=== PATIENT | female | born 1960 ===

== ENCOUNTER 2018-05-16 08:36 | Inpatient (IN) | payer MEDICAID ==
[2018-05-16 08:47] VITALS: BMI 37.3
[2018-05-16] MEDS ORDERED: Sodium Chloride 0.9% 1,000 ML IV ONE (09:09)
[2018-05-16] MEDS ORDERED: Sodium Chloride 0.9% 1,000 ML ONE (09:28)
[2018-05-16 09:54] LABS: BASO # 0.1 K/uL (0.0-0.2); BASO % 0.5 % (0.0-2.0); HEMOGLOBIN 14.2 g/dL (11.0-16.0); LYMPH # 1.5 K/uL (1.0-4.3); LYMPH % 9.9 % (20.0-40.0); MEAN CORPUSCULAR HEMOGLOBIN 27.6 pg (27.0-31.0); MEAN CORPUSCULAR HGB CONC 33.2 g/dL (33.0-37.0); MEAN PLATELET VOLUME 9.3 fL (7.2-11.7); MONO # 0.9 K/uL (0.0-0.8); MONO % 6.1 % (0.0-10.0); NEUT # 12.2 K/uL (1.8-7.0); NEUT % 83.5 % (50.0-75.0); NRBC % 0.3 % (0.0-2.0); PLATELET COUNT 283 K/uL (130-400); RBC 5.16 Mil/uL (3.80-5.20); RED CELL DISTRIBUTION WIDTH 14.1 % (11.5-14.5); SQUAMOUS EPITHIAL 1 /hpf (0-5); URINE BILIRUBIN NEGATIVE (NEGATIVE); URINE BLOOD NEGATIVE (NEGATIVE); URINE CLARITY Hazy (Clear); URINE COLOR Yellow (YELLOW); URINE GLUCOSE (UA) NORMAL (Normal); URINE LEUKOCYTE ESTERASE NEG Leu/uL (Negative); URINE PROTEIN NEGATIVE (NEGATIVE); URINE UROBILINOGEN NORMAL mg/dL (0.2-1.0); WHITE BLOOD COUNT 14.7 K/uL (4.8-10.8)
[2018-05-16 10:11] LABS: ALB/GLOB RATIO 1.4 (1.0-2.1); ALBUMIN 4.4 g/dL (3.5-5.0); ALT/SGPT 31 U/L (9-52); AST/SGOT 29 U/L (14-36); BLOOD UREA NITROGEN 15 mg/dL (7-17); CALCIUM 9.2 mg/dl (8.6-10.4); GFR AFRICAN-AMERICAN > 60; GFR NON-AFRICAN AMERICAN > 60; LIPASE 114 U/L (23-300)
[2018-05-16 10:28] LABS: LYMPHOCYTE 11 % (20-40); MONOCYTE 7 % (0-10); NEUTROPHIL 82 % (50-75); PLATELET ESTIMATE NORMAL (NORMAL); TOTAL CELLS COUNTED 100
--- NOTE | 2018-05-16 10:55 | US ---
HISTORY: Right upper quadrant tenderness COMPARISON: None. TECHNIQUE: Grayscale imaging was performed. FINDINGS: LIVER: Measures 16.7 cm in length. There is diffuse increased echogenicity of the liver parenchyma. No mass. No intrahepatic bile duct dilatation. GALLBLADDER: There is a 2.0 cm stone in the neck of the gallbladder. There is mild gallbladder wall thickening and pericholecystic fluid. The sonographic Allen sign is positive. COMMON BILE DUCT: Measures 4.2 mm. No stones. No dilatation. PANCREAS: Normal in size and echotexture. No mass. No ductal dilatation. RIGHT KIDNEY: Measures 11.0 cm in length. Normal echogenicity. No calculus, mass, or hydronephrosis. AORTA: No aneurysmal dilatation. IVC: Unremarkable. OTHER FINDINGS: None . IMPRESSION: 1. Mild hepatomegaly. Diffuse increased echogenicity in the liver may reflect hepatic steatosis however parenchymal infectious/ inflammatory etiologies cannot be entirely excluded. Clinical and laboratory correlation is advised. 2. 2.0 cm presumable impacted stone in the neck of the gallbladder with mild gallbladder wall thickening and pericholecystic fluid as well as positive sonographic Allen's sign. Findings may represent acute calculus cholecystitis in the appropriate clinical setting. Clinical follow-up is advised.
--- NOTE | 2018-05-16 11:05 | C.PDOC ---
History Of Present Illness 58 y/o female presents to ED with c/o abdominal pain for 2 days associated with nausea and vomiting. Patient denies fever, chills, diarrhea, chest pain, sob or any other complaints at this time. Time Seen by Provider: 05/16/18 08:50 Chief Complaint (Nursing): Abdominal Pain History Per: Patient History/Exam Limitations: no limitations Onset/Duration Of Symptoms: Days Current Symptoms Are (Timing): Still Present Location Of Pain/Discomfort: RUQ Past Medical History Reviewed: Historical Data, Nursing Documentation, Vital Signs Vital Signs: Last Vital Signs Temp 98.7 F 05/16/18 08:46 Pulse 63 05/16/18 08:46 Resp 18 05/16/18 08:46 BP 136/67 05/16/18 08:46 Pulse Ox 100 05/16/18 12:09 - Medical History PMH: No Chronic Diseases Surgical History: No Surg Hx Family History: States: No Known Family Hx - Social History Hx Alcohol Use: No Hx Substance Use: No - Immunization History Hx Tetanus Toxoid Vaccination: No Hx Influenza Vaccination: No Hx Pneumococcal Vaccination: No Review Of Systems Except As Marked, All Systems Reviewed And Found Negative. Gastrointestinal: Positive for: Nausea, Vomiting, Abdominal Pain Physical Exam - Physical Exam Appears: Non-toxic, No Acute Distress Skin: Warm, Dry, No Rash Head: Atraumatic, Normacephalic Oral Mucosa: Moist Neck: Normal ROM, Supple Cardiovascular: Rhythm Regular Respiratory: Normal Breath Sounds, No Rales, No Rhonchi, No Wheezing Gastrointestinal/Abdominal: Bowel Sounds, Soft, Tenderness (RUQ), No Guarding, No Rebound Back: No CVA Tenderness, No Paraspinal Tenderness Neurological/Psych: Oriented x3, Normal Speech ED Course And Treatment - Laboratory Results Result Diagrams: 05/16/18 09:40 05/16/18 09:40 ECG: Interpreted By Me, Viewed By Me ECG Rhythm: Sinus Rhythm Rate From EC (bpm) O2 Sat by Pulse Oximetry: 100 (ra) Pulse Ox Interpretation: Normal Medical Decision Making Medical Decision Making: Assessment: RUQ pain Progress: D/w medical or surgical instrument maker, Dr Rucker consult. Patient to admitted to hospital for acute Cholecystitis Disposition Discussed With : Dwain Aguilar Doctor Will See Patient In The: Hospital Counseled Patient/Family Regarding: Studies Performed, Diagnosis - Disposition Disposition Time: 12:09 Condition: FAIR - Clinical Impression Clinical Impression: Cholecystitis - Scribe Statement The provider has reviewed the documentation as recorded by the Merlineibe Deuce Virk All medical record entries made by the Lennie were at my direction and personally dictated by me. I have reviewed the chart and agree that the record accurately reflects my personal performance of the history, physical exam, medical decision making, and the department course for this patient. I have also personally directed, reviewed, and agree with the discharge instructions and disposition.
[2018-05-16] MEDS ORDERED: Ciprofloxacin 400mg/200ml D5W 400 MG/200 ML BAG IVPB STA (11:37)
[2018-05-16] MEDS ORDERED: metroNIDAZOLE IV 500 mg/100 ml 500 MG/100 ML BAG IVPB STA (11:39)
--- NOTE | 2018-05-16 12:10 | RAD ---
Chest x-ray single frontal view History: Abdominal pain. Comparison: None available. Findings: Moderate venous congestion. Patchy consolidative changes in the right infrahilar region and left lung base. Cardiomegaly. Degenerative changes in the spine. Impression: Moderate venous congestion. Patchy consolidative changes in the right infrahilar region and left lung base. Cardiomegaly.
[2018-05-16] MEDS ORDERED: Ciprofloxacin 400mg/200ml D5W 400 MG/200 ML BAG IVPB ONE (12:28)
[2018-05-16] MEDS ORDERED: metroNIDAZOLE IV 500 mg/100 ml 500 MG/100 ML BAG ONE (12:29)
[2018-05-16] MEDS ORDERED: Sodium Chloride 0.9% 1,000 ML IV SCH (13:15)
--- NOTE | 2018-05-16 13:21 | CP.PCM.HP ---
<GuillermoKarly L. - Last Filed: 05/16/18 13:31> History of Present Illness - History of Present Illness History of Present Illness: CC: RUQ pain Patient is a 58 year old Female with no PMHx presenting with new onset RUQ pain radiating to the back. Pain started approximately 2 weeks ago as a dull pain and worsened around 9PM last night, 05/15/18, after eating a ham sandwich. At the same time patient experienced the onset of nausea and vomiting which continued several times last night and 4 more times today. Patient denies any blood in her vomitus. She currently denies any fever, chills , diarrhea, constipation, or change in urinary frequency. She still has an appetite, but was unable to eat today due to nausea. At the time of admission she endorsed RUQ pain and tenderness and back pain that seemed to get better with the Torodol given to her in the ER. Patient has never been to [facility], and does not have a PMD. PMHx: None PSH: 2 c-sections 1979, 1981 FH: Mom- HTN Daughter HTN Social: Former smoker until 1 year ago. Smoked 3-4 cigarettes/day x 30 years No Home Meds Present on Admission - Present on Admission Any Indicators Present on Admission: No History of DVT/PE: No History of Uncontrolled Diabetes: No Urinary Catheter: No Decubitus Ulcer Present: No Review of Systems - Constitutional Constitutional: absent: Chills, Fever, Weight Loss - EENT Eyes: absent: Blurred Vision Nose/Mouth/Throat: absent: Sore Throat - Cardiovascular Cardiovascular: absent: Chest Pain, Diaphoresis, Palpitations, Pedal Edema - Respiratory Respiratory: absent: Cough, Dyspnea, Dyspnea on Exertion, Wheezing - Gastrointestinal Gastrointestinal: Abdominal Pain (RUQ pain ), Nausea, Vomiting. absent: Constipation, Diarrhea - Genitourinary Genitourinary: absent: Difficulty Urinating, Dysuria, Hematuria - Musculoskeletal Musculoskeletal: absent: Numbness, Stiffness, Tingling - Integumentary Integumentary: absent: Rash - Neurological Neurological: absent: Weakness - Hematologic/Lymphatic Hematologic: absent: Easy Bleeding, Easy Bruising Past Patient History - Past Social History Smoking Status: Never Smoked - PSYCHIATRIC Hx Substance Use: No - SURGICAL HISTORY Hx Surgeries: Yes Hx Section: Yes (X2) - ANESTHESIA Hx Anesthesia: Yes Hx Anesthesia Reactions: No Meds Allergies/Adverse Reactions: Allergies Allergy/AdvReac Type Severity Reaction Status Date / Time Penicillins Allergy Unknown Verified 05/16/18 08:45 Physical Exam - Constitutional Appears: Non-toxic, No Acute Distress - Head Exam Head Exam: ATRAUMATIC, NORMAL INSPECTION, NORMOCEPHALIC - Eye Exam Eye Exam: EOMI, Normal appearance - ENT Exam ENT Exam: Mucous Membranes Dry - Neck Exam Neck exam: Positive for: Full Rom - Respiratory Exam Respiratory Exam: Clear to Auscultation Bilateral, NORMAL BREATHING PATTERN. absent: Rales, Rhonchi, Wheezes, Respiratory Distress, Stridor - Cardiovascular Exam Cardiovascular Exam: REGULAR RHYTHM, RRR, +S1, +S2 - GI/Abdominal Exam GI & Abdominal Exam: Normal Bowel Sounds, Soft, Tenderness (RUQ pain, positive Allen's sign ). absent: Distended, Firm, Guarding - Extremities Exam Extremities exam: Positive for: normal inspection. Negative for: pedal edema, tenderness - Neurological Exam Neurological exam: Alert, CN II-XII Intact, Oriented x3 - Psychiatric Exam Psychiatric exam: Normal Affect, Normal Mood - Skin Skin Exam: Intact, Normal Color, Warm Results - Vital Signs Recent Vital Signs: Last Vital Signs Temp 98.7 F 05/16/18 08:46 Pulse 63 05/16/18 08:46 Resp 18 05/16/18 08:46 BP 136/67 05/16/18 08:46 Pulse Ox 100 05/16/18 12:28 - Labs Result Diagrams: 05/16/18 09:40 05/16/18 09:40 Labs: Laboratory Results - last 24 hr 05/16/18 05/16/18 05/16/18 09:40 09:40 09:40 WBC 14.7 H RBC 5.16 Hgb 14.2 Hct 42.8 MCV 83.0 MCH 27.6 MCHC 33.2 RDW 14.1 Plt Count 283 MPV 9.3 Neut % (Auto) 83.5 H Lymph % (Auto) 9.9 L [place] % (Auto) 6.1 Eos % (Auto) 0.0 Baso % (Auto) 0.5 Neut # (Auto) 12.2 H Lymph # (Auto) 1.5 [place] # (Auto) 0.9 H Eos # (Auto) 0.0 Baso # (Auto) 0.1 Neutrophils % (Manual) 82 H Lymphocytes % (Manual) 11 L Monocytes % (Manual) 7 Platelet Estimate Normal RBC Morphology Normal Sodium 142 Potassium 3.8 Chloride 104 Carbon Dioxide 24 Anion Gap 17 BUN 15 Creatinine 0.6 L Est GFR ( Amer) > 60 Est GFR (Non-Af Amer) > 60 Random Glucose 127 H Calcium 9.2 Total Bilirubin 0.6 AST 29 ALT 31 Alkaline Phosphatase 93 Troponin I < 0.0120 Total Protein 7.6 Albumin 4.4 Globulin 3.2 Albumin/Globulin Ratio 1.4 Lipase 114 Urine Color Yellow Urine Clarity Hazy Urine pH 6.0 Ur Specific [place] 1.026 Urine Protein Negative Urine Glucose (UA) Normal Urine Ketones Negative Urine Blood Negative Urine Nitrate Negative Urine Bilirubin Negative Urine Urobilinogen Normal Ur Leukocyte Esterase Neg Urine WBC (Auto) 1 Urine RBC (Auto) 4 H Ur Squamous Epith Cells 1 Assessment & Plan - Assessment and Plan (Free Text) Assessment: Cholecystitis Abdominal ultrasound: mild hepatomegaly. 2cm stone in neck of gallbladder, positive sonographic Allen's sign f/u abd/pelvis CT without contrast Surgery consulted, Dr. Rucker, help appreciated NPO Meds: Toradol 30mg ivp q6h prn pain Cipro 400mg ivpb q12h Metronidazole 500mg ivbp q8h Leukocytosis 2/2 cholecystitis WBC: 14.7 Cipro 400mg ivpb q12h Metronidazole 500mg ivbp q8h Prophylaxis Pepcid 20mg daily SCDs <Dwain Aguilar H - Last Filed: 05/16/18 16:46> Results - Vital Signs Recent Vital Signs: Last Vital Signs Temp 98.3 F 05/16/18 16:03 Pulse 62 05/16/18 16:03 Resp 18 05/16/18 16:03 BP 96/54 L 05/16/18 16:03 Pulse Ox 97 05/16/18 16:03 - Labs Result Diagrams: 05/16/18 09:40 05/16/18 09:40 Labs: Laboratory Results - last 24 hr 05/16/18 05/16/18 05/16/18 09:40 09:40 09:40 WBC 14.7 H RBC 5.16 Hgb 14.2 Hct 42.8 MCV 83.0 MCH 27.6 MCHC 33.2 RDW 14.1 Plt Count 283 MPV 9.3 Neut % (Auto) 83.5 H Lymph % (Auto) 9.9 L [place] % (Auto) 6.1 Eos % (Auto) 0.0 Baso % (Auto) 0.5 Neut # (Auto) 12.2 H Lymph # (Auto) 1.5 [place] # (Auto) 0.9 H Eos # (Auto) 0.0 Baso # (Auto) 0.1 Neutrophils % (Manual) 82 H Lymphocytes % (Manual) 11 L Monocytes % (Manual) 7 Platelet Estimate Normal RBC Morphology Normal PT INR APTT Sodium 142 Potassium 3.8 Chloride 104 Carbon Dioxide 24 Anion Gap 17 BUN 15 Creatinine 0.6 L Est GFR ( Amer) > 60 Est GFR (Non-Af Amer) > 60 Random Glucose 127 H Calcium 9.2 Phosphorus Magnesium Total Bilirubin 0.6 AST 29 ALT 31 Alkaline Phosphatase 93 Troponin I < 0.0120 Total Protein 7.6 Albumin 4.4 Globulin 3.2 Albumin/Globulin Ratio 1.4 Lipase 114 TSH 3rd Generation Urine Color Yellow Urine Clarity Hazy Urine pH 6.0 Ur Specific [place] 1.026 Urine Protein Negative Urine Glucose (UA) Normal Urine Ketones Negative Urine Blood Negative Urine Nitrate Negative Urine Bilirubin Negative Urine Urobilinogen Normal Ur Leukocyte Esterase Neg Urine WBC (Auto) 1 Urine RBC (Auto) 4 H Ur Squamous Epith Cells 1 05/16/18 05/16/18 14:04 14:04 WBC RBC Hgb Hct MCV MCH MCHC RDW Plt Count MPV Neut % (Auto) Lymph % (Auto) [place] % (Auto) Eos % (Auto) Baso % (Auto) Neut # (Auto) Lymph # (Auto) [place] # (Auto) Eos # (Auto) Baso # (Auto) Neutrophils % (Manual) Lymphocytes % (Manual) Monocytes % (Manual) Platelet Estimate RBC Morphology PT 12.5 H INR 1.1 APTT 35 H Sodium Potassium Chloride Carbon Dioxide Anion Gap BUN Creatinine Est GFR ( Amer) Est GFR (Non-Af Amer) Random Glucose Calcium Phosphorus 3.3 Magnesium 1.8 Total Bilirubin AST ALT Alkaline Phosphatase Troponin I Total Protein Albumin Globulin Albumin/Globulin Ratio Lipase TSH 3rd Generation 0.95 Urine Color Urine Clarity Urine pH Ur Specific [place] Urine Protein Urine Glucose (UA) Urine Ketones Urine Blood Urine Nitrate Urine Bilirubin Urine Urobilinogen Ur Leukocyte Esterase Urine WBC (Auto) Urine RBC (Auto) Ur Squamous Epith Cells Attending/Attestation - Attestation I have personally seen and examined this patient.: Yes I have fully participated in the care of the patient.: Yes I have reviewed all pertinent clinical information: Yes Notes (Text): 05/16/18 16:46 Medical attending: Patient was seen and examined by me, agrees the above note by the medical cash poster. The patient was having right upper quadrant pain. Ultrasound shows that there is what appears to be a sonographic Allen sign as well as a 2 cm stone near the neck of the gallbladder. Recheck in additional CT of the abdomen and pelvis as well without contrast. For now we'll give Toradol for pain control. She does have a white blood cell count so we will be starting the Cipro and Flagyl for the time being. Thank you very much, Dwain Aguilar
--- NOTE | 2018-05-16 13:55 | CT ---
PROCEDURE: CT Abdomen and Pelvis without intravenous contrast HISTORY: cholecystitis, RUQ pain COMPARISON: None. TECHNIQUE: Without contrast.. Contrast dose: 0 Radiation dose: Total exam DLP = 798.68 mGy-cm. This CT exam was performed using one or more of the following dose reduction techniques: Automated exposure control, adjustment of the mA and/or kV according to patient size, and/or use of iterative reconstruction technique. FINDINGS: LOWER THORAX: Unremarkable. LIVER: Unremarkable. No gross lesion or ductal dilatation. GALLBLADDER AND BILE DUCTS: Cholelithiasis. Peripherally calcified gallstone noted. No mural thickening or pericholecystic fluid appreciated. No evidence of biliary obstruction. Normal caliber of common bile duct. PANCREAS: Unremarkable. No gross lesion or ductal dilatation. SPLEEN: Unremarkable. ADRENALS: Unremarkable. No mass. KIDNEYS AND URETERS: Unremarkable. No hydronephrosis. No solid mass. VASCULATURE: Unremarkable. No aortic aneurysm. BOWEL: Unremarkable. No obstruction. No gross mural thickening. APPENDIX: Unremarkable. Normal appendix. PERITONEUM: Unremarkable. No free fluid. No free air. LYMPH NODES: Unremarkable. No enlarged lymph nodes. BLADDER: Nondistended REPRODUCTIVE: Small calcified uterine fibroid at fundus. Intrauterine device noted. Consideration should be given to removal of the intrauterine device in this postmenopausal patient. BONES: No acute fracture. OTHER FINDINGS: None. IMPRESSION: Cholelithiasis without evidence of cholecystitis. If there is clinical concern of cholecystitis recommend evaluation with ultrasound examination. No biliary obstruction. Incidentally noted intrauterine device within the uterus. In this postmenopausal patient, consideration should be given to nonemergent removal of intrauterine device. Small calcified uterine fibroid. No other significant abnormality.
[2018-05-16 14:17] LABS: INR 1.1; PROTHROMBIN TIME 12.5 SECONDS (9.7-12.2)
--- NOTE | 2018-05-17 04:30 | CP.PCM.CON ---
History of Present Illness - History of Present Illness History of Present Illness: Surgery 58 F w ho cholelithiasis came with RUQ pain started yesterday. Pain started yesterday. It radiates to her R back. Pt also reports N/V. Non bloody non bilious. Denies fever, diarrhea, CP, SOB, hematochezia, hematemesis, dysuria, hematuria, sick contact, recent travels. Pt had these sx multiple times . It is getting more frequent and intense. US shows 2cm gallstones on the neck of the gallbladder. thicken wall and pericholecystic fluids. CBD is 4mm. LFT is wnl. WBC is 15. Surgery is consulted to evaluate for cholecystitis . PT is consented to undergo lap sirena. PMHx: cholelithiasis PSH: 2 c-sections 1979, 1981 FH: Mom- HTN Daughter HTN Social: Former smoker until 1 year ago. Smoked 3-4 cigarettes/day x 30 years Review of Systems - Review of Systems Review of Systems: See HPI Past Patient History - Past Medical History & Family History Past Medical History?: Yes - Past Social History Smoking Status: Former Smoker - CARDIAC Hx Cardiac Disorders: No - PULMONARY Hx Respiratory Disorders: No - NEUROLOGICAL Hx Neurological Disorder: No - HEENT Hx HEENT Problems: No - RENAL Hx Chronic Kidney Disease: No - ENDOCRINE/METABOLIC Hx Endocrine Disorders: No - HEMATOLOGICAL/ONCOLOGICAL Hx Blood Disorders: No - INTEGUMENTARY Hx Dermatological Problems: No - MUSCULOSKELETAL/RHEUMATOLOGICAL Hx Falls: No - GASTROINTESTINAL Hx Gastrointestinal Disorders: No - GENITOURINARY/GYNECOLOGICAL Hx Genitourinary Disorders: No - PSYCHIATRIC Hx Psychophysiologic Disorder: No Hx Substance Use: No - SURGICAL HISTORY Hx Surgeries: Yes Hx Section: Yes (X2) - ANESTHESIA Hx Anesthesia: Yes Hx Anesthesia Reactions: No Hx Malignant Hyperthermia: No Has any member of the family had a problem w/ anesthesia?: No Meds Allergies/Adverse Reactions: Allergies Allergy/AdvReac Type Severity Reaction Status Date / Time Penicillins Allergy Unknown Verified 05/16/18 08:45 - Medications Medications: Current Medications Famotidine (Pepcid) 20 mg IVP DAILY NABIL Sodium Chloride (Sodium Chloride 0.9%) 1,000 mls @ 100 mls/hr IV .Q10H NABIL Last Admin: 05/16/18 15:46 Dose: 100 mls/hr Ciprofloxacin (Cipro 400mg/200ml Dsw) 400 mg in 200 mls @ 133 mls/hr IVPB Q12H NABIL PRN Reason: Protocol Metronidazole (Flagyl) 500 mg in 100 mls @ 100 mls/hr IVPB Q8 NABIL PRN Reason: Protocol Ketorolac Tromethamine (Toradol) 30 mg IVP Q6 PRN PRN Reason: Pain, moderate (4-7) Last Admin: 05/16/18 21:22 Dose: 30 mg Physical Exam - Constitutional Appears: No Acute Distress - Head Exam Head Exam: ATRAUMATIC, NORMAL INSPECTION, NORMOCEPHALIC - Eye Exam Eye Exam: EOMI, Normal appearance, PERRL Pupil Exam: NORMAL ACCOMODATION, PERRL - ENT Exam ENT Exam: Mucous Membranes Moist, Normal Exam - Neck Exam Neck exam: Positive for: Full Rom, Normal Inspection - Respiratory Exam Respiratory Exam: NORMAL BREATHING PATTERN - Cardiovascular Exam Cardiovascular Exam: REGULAR RHYTHM - GI/Abdominal Exam GI & Abdominal Exam: Normal Bowel Sounds, Soft, Tenderness. absent: Distended, Firm, Guarding, Hernia, Rebound, Rigid Additional comments: RUQ TTP, R back TTP. - Exam Exam: NORMAL INSPECTION - Extremities Exam Extremities exam: Positive for: full ROM, normal inspection - Back Exam Back exam: FULL ROM, NORMAL INSPECTION, tenderness - Neurological Exam Neurological exam: Alert, CN II-XII Intact, Normal Gait, Oriented x3, Reflexes Normal - Psychiatric Exam Psychiatric exam: Normal Affect, Normal Mood - Skin Skin Exam: Dry, Intact, Normal Color, Warm Results - Vital Signs Recent Vital Signs: Last Vital Signs Temp 98.3 F 05/16/18 23:41 Pulse 65 05/16/18 23:41 Resp 20 05/16/18 23:41 BP 92/52 L 05/16/18 23:41 Pulse Ox 95 05/16/18 23:41 - Labs Result Diagrams: 05/16/18 09:40 05/16/18 09:40 Labs: Laboratory Results - last 24 hr 05/16/18 05/16/18 05/16/18 09:40 09:40 09:40 WBC 14.7 H RBC 5.16 Hgb 14.2 Hct 42.8 MCV 83.0 MCH 27.6 MCHC 33.2 RDW 14.1 Plt Count 283 MPV 9.3 Neut % (Auto) 83.5 H Lymph % (Auto) 9.9 L [place] % (Auto) 6.1 Eos % (Auto) 0.0 Baso % (Auto) 0.5 Neut # (Auto) 12.2 H Lymph # (Auto) 1.5 [place] # (Auto) 0.9 H Eos # (Auto) 0.0 Baso # (Auto) 0.1 Neutrophils % (Manual) 82 H Lymphocytes % (Manual) 11 L Monocytes % (Manual) 7 Platelet Estimate Normal RBC Morphology Normal PT INR APTT Sodium 142 Potassium 3.8 Chloride 104 Carbon Dioxide 24 Anion Gap 17 BUN 15 Creatinine 0.6 L Est GFR ( Amer) > 60 Est GFR (Non-Af Amer) > 60 Random Glucose 127 H Calcium 9.2 Phosphorus Magnesium Total Bilirubin 0.6 AST 29 ALT 31 Alkaline Phosphatase 93 Troponin I < 0.0120 Total Protein 7.6 Albumin 4.4 Globulin 3.2 Albumin/Globulin Ratio 1.4 Lipase 114 TSH 3rd Generation Urine Color Yellow Urine Clarity Hazy Urine pH 6.0 Ur Specific [place] 1.026 Urine Protein Negative Urine Glucose (UA) Normal Urine Ketones Negative Urine Blood Negative Urine Nitrate Negative Urine Bilirubin Negative Urine Urobilinogen Normal Ur Leukocyte Esterase Neg Urine WBC (Auto) 1 Urine RBC (Auto) 4 H Ur Squamous Epith Cells 1 05/16/18 05/16/18 14:04 14:04 WBC RBC Hgb Hct MCV MCH MCHC RDW Plt Count MPV Neut % (Auto) Lymph % (Auto) [place] % (Auto) Eos % (Auto) Baso % (Auto) Neut # (Auto) Lymph # (Auto) [place] # (Auto) Eos # (Auto) Baso # (Auto) Neutrophils % (Manual) Lymphocytes % (Manual) Monocytes % (Manual) Platelet Estimate RBC Morphology PT 12.5 H INR 1.1 APTT 35 H Sodium Potassium Chloride Carbon Dioxide Anion Gap BUN Creatinine Est GFR ( Amer) Est GFR (Non-Af Amer) Random Glucose Calcium Phosphorus 3.3 Magnesium 1.8 Total Bilirubin AST ALT Alkaline Phosphatase Troponin I Total Protein Albumin Globulin Albumin/Globulin Ratio Lipase TSH 3rd Generation 0.95 Urine Color Urine Clarity Urine pH Ur Specific [place] Urine Protein Urine Glucose (UA) Urine Ketones Urine Blood Urine Nitrate Urine Bilirubin Urine Urobilinogen Ur Leukocyte Esterase Urine WBC (Auto) Urine RBC (Auto) Ur Squamous Epith Cells Assessment & Plan - Assessment and Plan (Free Text) Assessment: symptomatic cholelithiasis US shows 2cm gallstones on the neck of the gallbladder. thicken wall and pericholecystic fluids. CBD is 4mm. LFT is wnl. WBC is 15. Surgery is consulted to evaluate for cholecystitis . PT is consented to undergo lap sirena. -NPO -IVF -ABX -OR at 9AM lap sirena -Pain /nausea control -DT/GI ppx DW Dr. Rucker
[2018-05-17] MEDS ORDERED: HYDROmorphone 1 mg/ml ISec IVP PRN (04:41)
[2018-05-17] MEDS: metroNIDAZOLE IV 500 mg/100 ml 500 MG/100 ML BAG IVPB SCH ×3 (06:13→21:33)
[2018-05-17] MEDS: Ciprofloxacin 400mg/200ml D5W 400 MG/200 ML BAG IVPB SCH ×2 (06:13→18:04)
[2018-05-17] MEDS: Sodium Chloride 0.9% 1,000 ML IV SCH ×4 (07:09→18:18)
[2018-05-17 07:32] LABS: BASO % 0.4 % (0.0-2.0); EOS # 0.1 K/uL (0.0-0.7); LYMPH # 2.1 K/uL (1.0-4.3); LYMPH % 18.8 % (20.0-40.0); MEAN CELL VOLUME 83.6 fL (81.0-99.0); MEAN CORPUSCULAR HEMOGLOBIN 27.8 pg (27.0-31.0); MEAN CORPUSCULAR HGB CONC 33.3 g/dL (33.0-37.0); MEAN PLATELET VOLUME 9.1 fL (7.2-11.7); MONO # 1.2 K/uL (0.0-0.8); MONO % 10.6 % (0.0-10.0); NEUT # 7.7 K/uL (1.8-7.0); NEUT % 69.2 % (50.0-75.0); RBC 4.26 Mil/uL (3.80-5.20); RED CELL DISTRIBUTION WIDTH 13.9 % (11.5-14.5); WHITE BLOOD COUNT 11.2 K/uL (4.8-10.8)
[2018-05-17 07:37] LABS: HEMOGLOBIN 11.8 g/dL (11.0-16.0)
[2018-05-17 08:07] LABS: ALB/GLOB RATIO 1.3 (1.0-2.1); ALBUMIN 3.2 g/dL (3.5-5.0); ALT/SGPT 29 U/L (9-52); AST/SGOT 21 U/L (14-36); BLOOD UREA NITROGEN 11 mg/dL (7-17); CALCIUM 8.1 mg/dl (8.6-10.4); GFR AFRICAN-AMERICAN > 60; GFR NON-AFRICAN AMERICAN > 60; HDL CHOLESTEROL 28 mg/dL (30-70)
[2018-05-17 08:31] LABS: LDL CHOLESTEROL 95 mg/dL (0-129)
[2018-05-17] MEDS ORDERED: Bupivacaine-Epi 0.5%-1:200,000 PF Inj ONE (08:52)
[2018-05-17] MEDS ORDERED: Propofol 10 mg/ml Inj (20 ML) ONE ×2 (09:01→09:20)
[2018-05-17] MEDS ORDERED: Rocuronium 10 mg/ml (5 ml) ONE (09:01)
[2018-05-17] MEDS ORDERED: Midazolam 2 MG/2 ML VIAL ONE ×2 (09:01→09:21)
[2018-05-17] MEDS ORDERED: Neostigmine Methylsulfate 3mg/3ml Syringe IV ONE (10:24)
--- NOTE | 2018-05-17 10:40 | PCM.SURG1 ---
Surgeon's Initial Post Op Note - Surgeon's Notes Surgeon: Dr. Rucker Head Soft Sugar Operator: Dr. Rudolph PGY2 Type of Anesthesia: General Endo Pre-Operative Diagnosis: Acute Cholecystitis Operative Findings: See operative dictation Post-Operative Diagnosis: Acute Cholecystitis Operation Performed: Laparoscopic Cholecystectomy Specimen/Specimens Removed: Gallbladder Estimated Blood Loss: EBL {In ML}: 20 Blood Products Given: N/A Drains Used: No Drains Post-Op Condition: Good Date of Surgery/Procedure: 05/17/18 Time of Surgery/Procedure: 10:40
[2018-05-17] MEDS ORDERED: HYDROmorphone 0.5 mg/0.5 ml ISec IVP PRN (10:41)
--- NOTE | 2018-05-17 12:54 | CP.PCM.PCO ---
Physician Communication Note - Physician Communication Note Physician Communication Note: Patient transferred to Dr. Rucker's service.
[2018-05-17 13:03] VITALS: RESP 20
[2018-05-17] MEDS: Oxycodone/Acetaminophen 5/325 mg Tab PO PRN ×2 (18:04→21:37)
--- NOTE | 2018-05-17 21:38 | OP ---
PROCEDURE DATE: 05/17/2018 PREOPERATIVE DIAGNOSIS: Acute calculous cholecystitis. POSTOPERATIVE DIAGNOSIS: Acute calculous cholecystitis. PROCEDURE PERFORMED: Laparoscopic cholecystectomy. SURGEON: Nate Rucker MD FINDINGS: Gallbladder was markedly distended, very edematous, thickened mora with adhesions involving the inferior portion of the gallbladder down into the duodenum and stomach. DESCRIPTION OF PROCEDURE: Under general anesthesia, the patient was prepared and draped in the sterile fashion. CO2 was insufflated through a Veress needle inserted in the umbilical area to about 15 mmHg pressure. A 10-mm trocar was then inserted through which a laparoscope was inserted. Under direct vision, a 5-mm epigastric port and a 5-mm right upper quadrant ports were inserted. The patient was placed in the reverse Trendelenburg position and turned slightly towards the left side. It was impossible to grasp the gallbladder because of the very dense texture of it. Therefore, a needle was then inserted, and about 20 mL of bile was then aspirated. It likely collapsed the gallbladder but allowed us to be able to grab it with the forceps. Some fluid was filled into the peritoneal cavity. The fluid was immediately suctioned out. The adhesions were taken down. The grasper was then reapplied around the area of the ampulla. Traction was applied. There was a large stone impacted in this area. The adhesions were taken down. Blunt and sharp dissection was carried out to isolate the cystic duct and then cystic arteries, which were transacted between hemoclips. The gallbladder was then removed from the liver bed with electrocautery. All the bleeders were controlled with electrocautery. The gallbladder was extracted through the umbilical port. It was necessary to enlarge the fascial and peritoneal incision to accommodate the passage of this large stone. The area was irrigated with copious amount of saline solution. The irrigating fluid suctioned out. CO2 was allowed to escape from the peritoneal cavity. Trocars were removed. The wound was closed in a routine fashion. Estimated blood loss about 20 mL. No complications. Nate Rucker MD
[2018-05-18] MEDS: Sodium Chloride 0.9% 1,000 ML IV SCH ×2 (01:00→07:30)
[2018-05-18] MEDS: Oxycodone/Acetaminophen 5/325 mg Tab PO PRN (04:23)
[2018-05-18 04:30] VITALS: O2SAT 96
[2018-05-18] MEDS: metroNIDAZOLE IV 500 mg/100 ml 500 MG/100 ML BAG IVPB SCH (05:06)
[2018-05-18] MEDS: Ciprofloxacin 400mg/200ml D5W 400 MG/200 ML BAG IVPB SCH (06:23)
[2018-05-18 06:41] LABS: BASO % 0.2 % (0.0-2.0); EOS % 0.2 % (0.0-4.0); HEMOGLOBIN 10.8 g/dL (11.0-16.0); LYMPH # 1.8 K/uL (1.0-4.3); LYMPH % 11.9 % (20.0-40.0); MEAN CELL VOLUME 83.8 fL (81.0-99.0); MEAN CORPUSCULAR HEMOGLOBIN 28.2 pg (27.0-31.0); MEAN CORPUSCULAR HGB CONC 33.7 g/dL (33.0-37.0); MEAN PLATELET VOLUME 8.9 fL (7.2-11.7); MONO # 1.7 K/uL (0.0-0.8); MONO % 10.8 % (0.0-10.0); NEUT % 76.9 % (50.0-75.0); RBC 3.82 Mil/uL (3.80-5.20); RED CELL DISTRIBUTION WIDTH 14.3 % (11.5-14.5); WHITE BLOOD COUNT 15.6 K/uL (4.8-10.8)
[2018-05-18 07:05] LABS: ALB/GLOB RATIO 1.2 (1.0-2.1); ALBUMIN 3.1 g/dL (3.5-5.0); ALT/SGPT 89 U/L (9-52); AST/SGOT 82 U/L (14-36); BLOOD UREA NITROGEN 13 mg/dL (7-17); CALCIUM 8.3 mg/dl (8.6-10.4); GFR AFRICAN-AMERICAN > 60; GFR NON-AFRICAN AMERICAN > 60
[2018-05-18 07:55] VITALS: BP 107/65; PULSE 63; TEMP 98
--- NOTE | 2018-05-18 09:13 | CP.PCM.DIS ---
Provider - Provider Date of Admission: 05/16/18 12:08 Attending physician: Nate Rucker MD Time Spent in preparation of Discharge (in minutes): 45 Diagnosis - Discharge Diagnosis (1) Cholecystitis Status: Resolved Hospital Course - Lab Results Lab Results: Micro Results 05/17/18 11:00 Gallbladder Gram Stain - Final Most Recent Lab Values WBC 15.6 K/uL (4.8-10.8) H 05/18/18 06:34 RBC 3.82 Mil/uL (3.80-5.20) 05/18/18 06:34 Hgb 10.8 g/dL (11.0-16.0) L 05/18/18 06:34 Hct 32.1 % (34.0-47.0) L 05/18/18 06:34 MCV 83.8 fL (81.0-99.0) 05/18/18 06:34 MCH 28.2 pg (27.0-31.0) 05/18/18 06:34 MCHC 33.7 g/dL (33.0-37.0) 05/18/18 06:34 RDW 14.3 % (11.5-14.5) 05/18/18 06:34 Plt Count 217 K/uL (130-400) 05/18/18 06:34 MPV 8.9 fL (7.2-11.7) 05/18/18 06:34 Neut % (Auto) 76.9 % (50.0-75.0) H 05/18/18 06:34 Lymph % (Auto) 11.9 % (20.0-40.0) L 05/18/18 06:34 [place] % (Auto) 10.8 % (0.0-10.0) H 05/18/18 06:34 Eos % (Auto) 0.2 % (0.0-4.0) 05/18/18 06:34 Baso % (Auto) 0.2 % (0.0-2.0) 05/18/18 06:34 Neut # (Auto) 12.0 K/uL (1.8-7.0) H 05/18/18 06:34 Lymph # (Auto) 1.8 K/uL (1.0-4.3) 05/18/18 06:34 [place] # (Auto) 1.7 K/uL (0.0-0.8) H 05/18/18 06:34 Eos # (Auto) 0.0 K/uL (0.0-0.7) 05/18/18 06:34 Baso # (Auto) 0.0 K/uL (0.0-0.2) 05/18/18 06:34 Neutrophils % (Manual) 82 % (50-75) H 05/16/18 09:40 Lymphocytes % (Manual) 11 % (20-40) L 05/16/18 09:40 Monocytes % (Manual) 7 % (0-10) 05/16/18 09:40 Platelet Estimate Normal (NORMAL) 05/16/18 09:40 RBC Morphology Normal 05/16/18 09:40 PT 12.5 SECONDS (9.7-12.2) H 05/16/18 14:04 INR 1.1 05/16/18 14:04 APTT 35 SECONDS (21-34) H 05/16/18 14:04 Sodium 141 mmol/L (132-148) 05/18/18 06:34 Potassium 3.7 mmol/L (3.6-5.2) 05/18/18 06:34 Chloride 109 mmol/L (98-107) H 05/18/18 06:34 Carbon Dioxide 25 mmol/L (22-30) 05/18/18 06:34 Anion Gap 11 (10-20) 05/18/18 06:34 BUN 13 mg/dL (7-17) 05/18/18 06:34 Creatinine 0.6 mg/dL (0.7-1.2) L 05/18/18 06:34 Est GFR ( Amer) > 60 05/18/18 06:34 Est GFR (Non-Af Amer) > 60 05/18/18 06:34 Random Glucose 143 mg/dL (65-105) H 05/18/18 06:34 Hemoglobin A1c 6.2 % (4.2-6.5) 05/17/18 07:10 Calcium 8.3 mg/dl (8.6-10.4) L 05/18/18 06:34 Phosphorus 3.3 mg/dL (2.5-4.5) 05/16/18 14:04 Magnesium 1.8 mg/dL (1.6-2.3) 05/16/18 14:04 Total Bilirubin 0.7 mg/dL (0.2-1.3) 05/18/18 06:34 AST 82 U/L (14-36) H D 05/18/18 06:34 ALT 89 U/L (9-52) H D 05/18/18 06:34 Alkaline Phosphatase 62 U/L (38-126) 05/18/18 06:34 Troponin I < 0.0120 ng/mL (0.00-0.120) 05/16/18 09:40 Total Protein 5.7 g/dL (6.3-8.3) L 05/18/18 06:34 Albumin 3.1 g/dL (3.5-5.0) L 05/18/18 06:34 Globulin 2.6 gm/dL (2.2-3.9) 05/18/18 06:34 Albumin/Globulin Ratio 1.2 (1.0-2.1) 05/18/18 06:34 Triglycerides 94 mg/dL (0-149) 05/17/18 07:10 Cholesterol 141 mg/dL (0-199) 05/17/18 07:10 LDL Cholesterol Direct 95 mg/dL (0-129) 05/17/18 07:10 HDL Cholesterol 28 mg/dL (30-70) L 05/17/18 07:10 Lipase 114 U/L (23-300) 05/16/18 09:40 Free T4 0.87 ng/dL (0.78-2.19) 05/17/18 07:10 TSH 3rd Generation 0.95 mIU/L (0.46-4.68) 05/16/18 14:04 Urine Color Yellow (YELLOW) 05/16/18 09:40 Urine Clarity Hazy (Clear) 05/16/18 09:40 Urine pH 6.0 (5.0-8.0) 05/16/18 09:40 Ur Specific Walker 1.026 (1.003-1.030) 05/16/18 09:40 Urine Protein Negative mg/dL (NEGATIVE) 05/16/18 09:40 Urine Glucose (UA) Normal mg/dL (Normal) 05/16/18 09:40 Urine Ketones Negative mg/dL (NEGATIVE) 05/16/18 09:40 Urine Blood Negative (NEGATIVE) 05/16/18 09:40 Urine Nitrate Negative (NEGATIVE) 05/16/18 09:40 Urine Bilirubin Negative (NEGATIVE) 05/16/18 09:40 Urine Urobilinogen Normal mg/dL (0.2-1.0) 05/16/18 09:40 Ur Leukocyte Esterase Neg Dario/uL (Negative) 05/16/18 09:40 Urine WBC (Auto) 1 /hpf (0-5) 05/16/18 09:40 Urine RBC (Auto) 4 /hpf (0-3) H 05/16/18 09:40 Ur Squamous Epith Cells 1 /hpf (0-5) 05/16/18 09:40 - Hospital Course Hospital Course: Patient was admitted on 05/16 with abdominal pain, US significant for an acute cholecystitis with a 2cm GB stone. 05/17 pt was taken to the OR for a laparoscopic cholecystectomy. the patient handled the procedure well had an uneventfull recovery and is clear for discharge home. Discharge Exam - Head Exam Head Exam: ATRAUMATIC, NORMAL INSPECTION, NORMOCEPHALIC - Eye Exam Eye Exam: EOMI, Normal appearance - ENT Exam ENT Exam: Mucous Membranes Moist - Respiratory Exam Respiratory Exam: NORMAL BREATHING PATTERN, UNREMARKABLE - Cardiovascular Exam Cardiovascular Exam: +S1, +S2 - GI/Abdominal Exam GI & Abdominal Exam: Soft. absent: Distended, Firm, Guarding, Hernia, Rigid Additional comments: Appropriately tender, incisions well approximated with surgical glue in place - Neurological Exam Neurological exam: Alert - Psychiatric Exam Psychiatric exam: Normal Affect, Normal Mood - Skin Skin Exam: Dry, Intact Discharge Plan - Follow Up Plan Condition: FAIR Disposition: HOME/ ROUTINE Instructions: Low Cholesterol, Saturated Fat, and Trans Fat Diet , Cholecystitis (DC), Cholecystitis (GEN) Additional Instructions: No heavy lifting for 4 -8 weeks. You may shower tomorrow do not pick at the surgical glue it will come off on its own. No soaking for two weeks. Take pain medication as directed. If you develop new or concerning sympotoms call your [facility] care doctor, Dr. Rucker or go to the emergency department. Call Dr. Gray office to schedule a followup in 1-2 weeks. Referrals: Nate Rucker MD [Staff Provider] -
== END 2018-05-18 14:26 | disposition home or self-care (01) | DRG 419 ==
LOC: C.ER 08:36 → C.9E 12:08 → C.5S 13:24 → C.6T 05-17 12:49
PROVIDERS: ADMIT Surgery; ATTEND Surgery
PROC: 0FT44ZZ Resection of Gallbladder, Percutaneous Endoscopic Approach (ICD-10-PCS; principal; 2018-05-17 09:00)
DX: K80.12 Calculus of gallbladder with acute and chronic cholecystitis without obstruction (principal); Z87.891 Personal history of nicotine dependence; K82.8 Other specified diseases of gallbladder